=== PATIENT | female | born 1945 | race Two or more races ===

== ENCOUNTER 2025-01-12 07:00 | Inpatient (IN) | payer OTHER ==
[~2025-01-12] VITALS: Ht 157.5 cm; Wt 88.5 kg
[2025-02-01] MEDS ORDERED: TOPROL XL50 M1 PO (08:27)
[2025-02-01] MEDS ORDERED: SYNTHROID112 MCG PO (08:27)
[2025-02-01] MEDS ORDERED: IBANDRONATE SO150 MG PO (08:28)
[2025-02-01] MEDS ORDERED: COZAAR100 MG PO (08:28)
[2025-02-01] MEDS ORDERED: GRALISE600 MG (08:28)
[2025-02-01] MEDS ORDERED: SYMBICORT 16010.2 GM (08:29)
[2025-02-01] MEDS ORDERED: VYZULTA5 ML (08:29)
[2025-02-01] MEDS ORDERED: ALLEGRA ALLERGY60 MG (08:29)
[2025-02-01 08:55] VITALS: BP 136/78
[2025-02-01 09:14] LABS: PH,URINE 6.5 (5.0-8.0); URINE APPEARANCE Cloudy; URINE BILIRRUBIN Negative (NEGATIVE); URINE BLOOD Negative; URINE COLOR Yellow; URINE GLUCOSE Negative (NEGATIVE); URINE KETONE Negative (NEGATIVE); URINE LEUKOCYTE Small; URINE NITRATE Negative; URINE PROTEIN Negative (NEGATIVE); URINE UROBILINOGEN 0.2 E.U./dl
[2025-02-01 09:15] LABS: HEMATOCRIT 37.3 % (36.0-45.00); HEMOGLOBIN 12.7 g/dL (12.0-15.00); MEAN CELL VOLUME 87.7 fL (80.00-100.00); MEAN CORPUSCULAR HEMOGLOBIN 29.8 pg (27.00-32.0); PLATELET COUNT 197 K/uL (150-450); RED BLOOD COUNT 4.25 M/uL (4.00-6.00); RED CELL DISTRIBUTION WIDTH 13.9 % (11.5-14.5); URINE BACTERIA 57.5 uL (0.0-1933); URINE EPITHELIAL CELLS 8.7 uL (0.0-38.8); URINE WBC 48.4 uL (0.0-23.2)
[2025-02-01 09:19] LABS: INR 0.98; PARTIAL THROMBOPLASTIN TIME 25.1 SECONDS (22.0-34.0); PROTHROMBIN TIME 10.7 SECONDS (9.0-11.5)
[2025-02-01 09:30] LABS: URINE CAST 0.58 uL (0.0-1.40)
[2025-02-01 10:06] LABS: ALBUMIN 3.5 gm/dL (3.4-5.0); BILIRUBIN TOTAL 0.75 mg/dL (0.3-1.2); CALCIUM 9.4 mg/dL (8.5-10.1); CREATININE SERUM 0.92 mg/dL (0.55-1.02); GFR 58.59; GLOBULINA 3.4 G/DL (2.4-3.5); POTASSIUM 4.36 mEq/L (3.5-5.1); TOTAL PROTEIN 6.9 gm/dL (6.4-8.2)
[2025-02-09] MEDS ORDERED: VANCOMYCIN HCL 1,000 MG VIAL ONE (07:15)
[2025-02-09] MEDS ORDERED: KETOROLAC TROMETHAMINE 60 MG VIAL IM ONE ×2 (07:15→08:15)
[2025-02-09] MEDS ORDERED: BUPIVACAINE HCL/MPF 0.5% 30ML VIAL ONE (07:15)
[2025-02-09] MEDS ORDERED: CEFAZOLIN SODIUM 1,000 MG VIAL ONE ×2 (07:16→12:22)
[2025-02-09] MEDS ORDERED: TRANEXAMIC ACID 100MG/1ML (1000MG) AMPUL IV ONE ×3 (07:16→08:15)
[2025-02-09] MEDS ORDERED: LIDOCAINE HCL 1%/EPINEPHRINE 20ML VIAL IJ ONE ×2 (07:16→08:15)
[2025-02-09] MEDS ORDERED: DILTIAZEM HCL 50 MG/10 ML VIAL IV ONE (07:17)
[2025-02-09] MEDS ORDERED: VANCOMYCIN HCL 1,000 MG VIAL IR ONE (08:15)
[2025-02-09] MEDS ORDERED: MORPHINE SULFATE 4 MG/ML VIAL IV ONE ×3 (08:15→10:50)
[2025-02-09] MEDS ORDERED: CEFAZOLIN SODIUM 1,000 MG VIAL IV ONE (08:15)
[2025-02-09] MEDS ORDERED: BUPIVACAINE HCL 30 ML VIAL IJ ONE (08:15)
[2025-02-09] MEDS ORDERED: ONDANSETRON HCL 2 MG/ML VIAL IV PRN (09:30)
[2025-02-09] MEDS ORDERED: OxyCODONE HCL/APAP UD (PERCOCET) PO PRN (09:30)
[2025-02-09] MEDS ORDERED: ACETAMINOPHEN 325 MG TABLET PO PRN (09:45)
[2025-02-09] MEDS ORDERED: OxyCODONE HCL 5 MG TABLET (ROXICODONE) PO PRN (09:45)
[2025-02-09] MEDS ORDERED: CEFAZOLIN SODIUM 1,000 MG VIAL IV SCH (12:00)
[2025-02-09] MEDS ORDERED: MORPHINE SULFATE 4 MG/ML CARTRIDGE IV SCH (12:00)
[2025-02-09 14:31] VITALS: BP 95/56; O2SAT 95
[2025-02-09 16:00] VITALS: BP 98/50; O2SAT 95
[2025-02-09] MEDS ORDERED: ENALAPRILAT DIHYDRATE 1.25 MG/ML VIAL IV PRN (16:00)
[2025-02-09] MEDS ORDERED: ORPHENADRINE CITRATE 100 MG TABLET PO SCH (21:00)
[2025-02-09] MEDS ORDERED: GABAPENTIN 100 MG CAPSULE PO SCH (21:00)
[2025-02-10 00:59] VITALS: BP 129/78; O2SAT 97
[2025-02-10] MEDS ORDERED: LEVOTHYROXINE SODIUM 112 MCG TABLET PO SCH (06:00)
[2025-02-10 08:02] LABS: HEMATOCRIT 31.4 % (36.0-45.00); HEMOGLOBIN 10.5 g/dL (12.0-15.00); MEAN CELL VOLUME 89.1 fL (80.00-100.00); MEAN CORPUSCULAR HEMOGLOBIN 29.9 pg (27.00-32.0); MEAN CORPUSCULAR HGB CONC 33.5 g/dl (32.0-36.0); PLATELET COUNT 148 K/uL (150-450); RED BLOOD COUNT 3.53 M/uL (4.00-6.00); RED CELL DISTRIBUTION WIDTH 13.3 % (11.5-14.5)
[2025-02-10] MEDS ORDERED: METOPROLOL SUCCINATE 50 MG TAB.SR.24H PO SCH (09:00)
[2025-02-10] MEDS ORDERED: LOSARTAN POTASSIUM 100 MG TABLET PO SCH (09:00)
[2025-02-10] MEDS ORDERED: APIXABAN 2.5 MG TABLET PO SCH (09:00)
[2025-02-10 14:25] LABS: COVID-19 AG NEGATIVE (NEGATIVE)
[2025-02-10 16:00] VITALS: BP 169/63; O2SAT 94
[2025-02-11 01:30] VITALS: BP 135/68; O2SAT 100
[2025-02-11 08:00] VITALS: BP 165/68; O2SAT 95
[2025-02-11] MEDS ORDERED: NORFLEX100MG PO (13:13)
[2025-02-11] MEDS ORDERED: GABAPENTIN100 MG PO (13:13)
[2025-02-11] MEDS ORDERED: ELIQUIS2.5 MG PO (13:13)
[2025-02-11] MEDS ORDERED: ACETAMINOPHEN-1 EAC2 PO (13:15)
[2025-02-11 14:51] VITALS: BP 143/78; O2SAT 96
== END 2025-02-11 15:01 | DRG 470 ==
LOC: O/R 02-09 05:40 → SURH 02-09 05:40
PROVIDERS: ADMIT Orthopaedic Surgery; ATTEND Orthopaedic Surgery
PROC: 0QUD07Z Supplement Right Patella with Autologous Tissue Substitute, Open Approach (ICD-10-PCS; 2025-02-09)
PROC: 0SRC0JZ Replacement of Right Knee Joint with Synthetic Substitute, Open Approach (ICD-10-PCS; principal; 2025-02-09 07:00)
DX: M17.11 Unilateral primary osteoarthritis, right knee (principal); M85.661 Other cyst of bone, right lower leg; M85.861 Other specified disorders of bone density and structure, right lower leg; I10 Essential (primary) hypertension